=== PATIENT | female | born 1950 | race Caucasian/White ===

== ENCOUNTER → 2019-11-19 | Outpatient (CLI) | payer OTHER | LOC: SJCVC 13:54 | DX: I21.09 ST elevation (STEMI) myocardial infarction involving other coronary artery of anterior wall (principal); R94.31 Abnormal electrocardiogram [ECG] [EKG]; I10 Essential (primary) hypertension; E78.00 Pure hypercholesterolemia, unspecified; I63.9 Cerebral infarction, unspecified; K21.9 Gastro-esophageal reflux disease without esophagitis; Z82.49 Family history of ischemic heart disease and other diseases of the circulatory system; Z79.899 Other long term (current) drug therapy ==

== ENCOUNTER → 2020-08-13 | Outpatient (CLI) | payer OTHER | LOC: SJCVCIMAG 09:34 | PROVIDERS: ATTEND Internal Medicine Cardiovascular Disease | DX: I65.23 Occlusion and stenosis of bilateral carotid arteries (principal); I63.9 Cerebral infarction, unspecified; I10 Essential (primary) hypertension; E78.00 Pure hypercholesterolemia, unspecified; Z79.899 Other long term (current) drug therapy; Z82.49 Family history of ischemic heart disease and other diseases of the circulatory system ==

== ENCOUNTER → 2021-04-13 | Outpatient (CLI) | payer OTHER | LOC: SJCVC 13:34 | PROVIDERS: ATTEND Internal Medicine Cardiovascular Disease | DX: I10 Essential (primary) hypertension (principal); E78.00 Pure hypercholesterolemia, unspecified; I77.9 Disorder of arteries and arterioles, unspecified; I63.9 Cerebral infarction, unspecified; R79.89 Other specified abnormal findings of blood chemistry; K21.9 Gastro-esophageal reflux disease without esophagitis; Z86.03 Personal history of neoplasm of uncertain behavior; Z79.899 Other long term (current) drug therapy; Z82.49 Family history of ischemic heart disease and other diseases of the circulatory system; Z88.1 Allergy status to other antibiotic agents; Z88.2 Allergy status to sulfonamides; Z88.8 Allergy status to other drugs, medicaments and biological substances ==

== ENCOUNTER → 2021-04-22 | Outpatient (CLI) | payer OTHER | LOC: SJCVCIMAG 07:51 | PROVIDERS: ATTEND Internal Medicine Cardiovascular Disease | DX: K80.20 Calculus of gallbladder without cholecystitis without obstruction (principal); R74.8 Abnormal levels of other serum enzymes; Z79.899 Other long term (current) drug therapy ==

== ENCOUNTER → 2021-09-24 | Day surgery (SDC) | payer OTHER ==
[~2021-09-24] VITALS: Ht 160 cm; Wt 65.8 kg
[~2021-09-24] MED LIST: CLARITIN10 M3 PO; CLONAZEPAM 0.50.5 M1 PO; COLACE 100 MG100 MG PO; CRESTOR20 MG PO; DULCOLAX STOOL100 M1 PO; EMERGEN-C 500500 MG PO; FISH OIL 1,0001 EAC9 PO; HYDROCODON-ACE1 EAC7 PO; MIRALAX119 GM PO; MIRALAX17 GM PO; PROBIOTIC1 EAC7 PO; SERTRALINE HCL100 MG PO
[2021-09-24 08:45] LABS: HEMATOCRIT 42.3 % (37.0-47.0); HEMOGLOBIN 14.1 gm/dL (12.0-15.0); MCH 31.5 pg (26.0-34.0); MCHC 33.3 g/dL (28.0-37.0); MCV 94.6 fL (80.0-100.0); RBC 4.47 mil/uL (4.20-5.00); RDW 13.3 % (10.5-14.5); WBC 5.9 thou/uL (4.0-11.0)
[2021-09-24 08:56] VITALS: BP 142/77
[2021-09-24 10:39] VITALS: BP 142/77
--- NOTE | 2021-09-29 14:07 | PATH ---
[facility] [address] [place] [address] PATHOLOGY RPT PROCEDURE Name: SHANNON COPPOLA Rosendo Room #: REG [facility] M.R.#: [id number] Admission: 09/24/21 Date of : 46 Discharge: Report #: [id number] Path Case #: [id number] [facility] Accession Number: [id number] . 01 Material submitted: . gallbladder - GALLBLADDER . 01 Clinical history: . LAPAROSCOPIC CHOLECYSTECTOMY SYMPTOMATIC CHOLELITHIASIS . 02 Diagnosis: Gallbladder (cholecystectomy): - Mild chronic cholecystitis with cholelithiasis. (RISHABH:sharlene; 09/28/2021) [facility] 09/28/2021 1156 Local . 02 Comment: We find no evidence of malignancy in any of the tissue examined. (RISHABH:sharlene; 09/28/2021) . 02 Electronically signed: . Edmundo Garcia MD, Pathologist NPI- [id number] . 01 Gross description: . Fixative: Formalin Labeled: Gallbladder Specimen received: Intact cholecystectomy Dimensions: 8.2 x 4.5 x 3.2 cm Serosa: Mares-green and smooth Lymph node: None identified Mucosa: Green and velvety Average wall thickness: 0.1 cm Calculi: Yes, multiple black jagged calculi are present within the cystic duct and gallbladder measuring in aggregate 1.8 x 1.0 x 0.2 cm and ranging from 0.1-0.3 cm in greatest dimension Abnormalities: None identified A1- Inside Sales Agent body, fundus, and the cystic duct margin. ([facility] [place]; 09/25/2021) [facility] 09/25/2021 1840 Local . 02 Pathologist provided ICD-10: K80.10 . 02 CPT . [id number] [address] [address] PATHOLOGY RPT PROCEDURE Name: SHANNON COPPOLA Room #: REG [facility]#: [id number] Admission: 09/24/21 Date of : 46 Discharge: Report #: [id number] Path Case #: [id number] Specimen Comment: A courtesy copy of this report has been sent to [phone] Specimen Comment: [phone] Specimen Comment: Report sent to / DR MCDONALD Specimen Comment: A duplicate report has been generated due to demographic updates. Performed at: 01 [facility] [address] [id number] MD Dar Dickey MD Phone: [phone] Performed at: 02 [facility] [address] [address] [id number] MD Edmundo Garcia MD Phone: [phone]
== END | disposition home or self-care (01) ==
LOC: OR 07:35
PROVIDERS: ATTEND Surgery
DX: K80.10 Calculus of gallbladder with chronic cholecystitis without obstruction (principal); Z98.890 Other specified postprocedural states; Z79.899 Other long term (current) drug therapy; Z20.822 Contact with and (suspected) exposure to COVID-19; Z85.828 Personal history of other malignant neoplasm of skin; Z88.8 Allergy status to other drugs, medicaments and biological substances
CPT/HCPCS: 50010; 50101; 50411; 50555; 52265; 52266; 53307; 53310; 53312; 54022; 54118; 55245; 56462; 56525; 56526; 58574; 58910; 62110; 62900; 70005